=== PATIENT | female | born 1980 | race Caucasian/White ===

== ENCOUNTER 2017-08-01 14:10 | Emergency (ER) | payer OTHER ==
[~2017-08-01] VITALS: Ht 157.5 cm; Wt 65.5 kg
[2017-08-01 14:44] VITALS: BP 118/58; PULSE 66; RESP 16; TEMP 98.3; O2SAT 100
--- NOTE | 2017-08-01 15:20 | PD ---
HPI Chief Complaint: Headache Time Seen by Provider: 15:11 Travel History International Travel<30 days: No Contact w/Intl Traveler<30days: No Traveled to known affect area: No History of Present Illness HPI [age]-year-old female complains of headache as well as nausea. She reports a sense of numbness about the nose. She's had headaches for years about one month. Today's headache is similar to others however the numbness about the nose is no different. No loss of consciousness. Onset gradual. No vomiting. Range of motion of the neck is normal. PFSH Past Medical History Diminished Hearing: No Kidney Stones: Yes Tetanus Vaccination: Unknown ?: Not LMP: BCP Past Surgical History Surgical History: No Previous Surgery Social History Alcohol Use: Yes (RARE) Tobacco Use: Yes (OCC) Substance Use: No Allergies-Medications (Allergen,Severity, Reaction): Coded Allergies: No Known Allergies (Verified Allergy, Unknown, 08/01/17) Reported Meds & Prescriptions Reported Meds & Active Scripts Active Prochlorperazine Maleate 10 Mg Tab 10 Mg PO Q6H PRN Review of Systems Except as stated in HPI: all other systems reviewed are Neg General / Constitutional: No: Fever Physical Exam Narrative GENERAL: Well-nourished well-developed 36-year-old female no acute distress Vital Signs Date Time Temp Pulse Resp B/P (MAP) Pulse Ox O2 Delivery O2 Flow Rate FiO2 08/01/17 17:16 60 16 100 08/01/17 17:06 16 100 Room Air 08/01/17 15:10 16 100 Room Air 08/01/17 14:44 98.3 66 16 118/58 (78) 100 SKIN: Warm and dry. HEAD: Atraumatic. Normocephalic. EYES: Pupils equal and round. No scleral icterus. No injection or drainage. ENT: No nasal bleeding or discharge. Mucous membranes pink and moist. NECK: Trachea midline. No JVD. Supple no range of motion. CARDIOVASCULAR: Regular rate and rhythm. RESPIRATORY: No accessory muscle use. Clear to auscultation. Breath sounds equal bilaterally. GASTROINTESTINAL: Abdomen soft, non-tender, nondistended. Hepatic and splenic margins not palpable. MUSCULOSKELETAL: Extremities without clubbing, cyanosis, or edema. No obvious deformities. NEUROLOGICAL: Awake and alert. No obvious cranial nerve deficits. Motor grossly within normal limits. Five out of 5 muscle strength in the arms and legs. Normal speech. PSYCHIATRIC: Appropriate mood and affect; insight and judgment normal. Data Data Last Documented VS Vital Signs Date Time Temp Pulse Resp B/P (MAP) Pulse Ox O2 Delivery O2 Flow Rate FiO2 08/01/17 17:16 60 16 100 08/01/17 17:06 Room Air 08/01/17 14:44 98.3 118/58 (78) Orders Orders Urinalysis - C+S If Indicated (08/01/17 15:15) Ed Urine Pregnancytest Poc (08/01/17 15:15) Complete Blood Count With Diff (08/01/17 15:27) Basic Metabolic Panel (Bmp) (08/01/17 15:27) Ct Brain W/O Iv Contrast(Rout) (08/01/17 15:32) Ecg Monitoring (08/01/17 15:32) Iv Access Insert/Monitor (08/01/17 15:32) Oximetry (08/01/17 15:32) Sodium Chloride 0.9% Flush (Ns Flush) (08/01/17 15:45) Acetaminophen (Tylenol) (08/01/17 15:45) Diphenhydramine Inj (Benadryl Inj) (08/01/17 15:45) Metoclopramide Inj (Reglan Inj) (08/01/17 15:45) Sodium Chlor 0.9% 1000 Ml Inj (Ns 1000 M (08/01/17 15:32) Ed Discharge Order (08/01/17 16:27) Labs Laboratory Tests Test 08/01/17 15:20 08/01/17 15:30 Urine Color STRAW Urine Turbidity CLEAR Urine pH 6.5 Urine Specific Slater 1.020 Urine Protein NEG mg/dL Urine Glucose (UA) NEG mg/dL Urine Ketones NEG mg/dL Urine Occult Blood NEG Urine Nitrite NEG Urine Bilirubin NEG Urine Urobilinogen 0.2 MG/DL Urine Leukocyte Esterase NEG Urine RBC 0-3 /hpf Urine WBC 0-2 /hpf Urine Squamous Epithelial Cells 6-8 /hpf Microscopic Urinalysis Comment CULT NOT INDICATED White Blood Count 7.2 TH/MM3 Red Blood Count 4.83 MIL/MM3 Hemoglobin 14.5 GM/DL Hematocrit 43.6 % Mean Corpuscular Volume 90.4 FL Mean Corpuscular Hemoglobin 30.0 PG Mean Corpuscular Hemoglobin Concent 33.3 % Red Cell Distribution Width 12.3 % Platelet Count 231 TH/MM3 Mean Platelet Volume 9.1 FL Neutrophils (%) (Auto) 69.3 % Lymphocytes (%) (Auto) 21.2 % Monocytes (%) (Auto) 5.1 % Eosinophils (%) (Auto) 1.6 % Basophils (%) (Auto) 2.8 % Neutrophils # (Auto) 5.0 TH/MM3 Lymphocytes # (Auto) 1.5 TH/MM3 Monocytes # (Auto) 0.4 TH/MM3 Eosinophils # (Auto) 0.1 TH/MM3 Basophils # (Auto) 0.2 TH/MM3 CBC Comment DIFF FINAL Differential Comment Blood Urea Nitrogen 12 MG/DL Creatinine 0.62 MG/DL Random Glucose 64 MG/DL Calcium Level 9.0 MG/DL Sodium Level 137 MEQ/L Potassium Level 4.5 MEQ/L Chloride Level 105 MEQ/L Carbon Dioxide Level 27.9 MEQ/L Anion Gap 4 MEQ/L Estimat Glomerular Filtration Rate 110 ML/MIN MDM Medical Decision Making Medical Screen Exam Complete: Yes Emergency Medical Condition: Yes Medical Record Reviewed: Yes Differential Diagnosis Migraine, intracranial hemorrhage, TIA Narrative Course CBC & BMP Diagram 08/01/17 15:30 Calcium Level 9.[address] 08/01/17 1532 Signed Impressions: Service Date/Time: Tuesday, August 01, 2017 15:47 - CONCLUSION: Negative noncontrast head CT. No abnormality is identified to explain the clinical symptoms. Gilberto Morrell MD The patient is resting comfortably and feels better, is alert and in no distress. The patients results and examination findings were discussed. The repeat examination is unremarkable and benign. The history, exam, diagnostic testing, and current condition do not suggest any significant pathology to warrant further testing, continued ED treatment, admission, or surgical evaluation at this point. The vital signs have been stable. The patient does not have uncontrollable pain, intractable vomiting, or other significant symptoms. The patient's condition is stable and appropriate for discharge. The patient will pursue further outpatient evaluation with a primary care physician or other designated or consulting physician as indicated in the discharge instructions. The patient expressed understanding and was agreeable with this plan. Diagnosis Primary Impression: Headache Qualified Codes: R51 - Headache Additional Impression: Paresthesia Referrals: Jensen Barnett MD call for appointment Casey Cordoba MD call for appointment Med/Other Pt SpecificInfo: Prescription(s) given Scripts Prochlorperazine Maleate (Prochlorperazine Maleate) 10 Mg Tab 10 MG PO Q6H Y for HEADACHE, #15 TAB 0 Refills Prov: Haile Garcia MD 08/01/17 Disposition: 01 DISCHARGE HOME Condition: Stable Haile Garcia MD Aug 01, 2017 15:20
[2017-08-01] MEDS ORDERED: SODIUM CHLOR 0.9% 1000 ML INJ 1,000 ML IV ONE (15:32)
[2017-08-01 15:34] LABS: BILIRUBIN, URINE NEG (NEG); BLOOD, URINE NEG (NEG); GLUCOSE,URINE NEG (NEG); KETONE, URINE NEG (NEG); NITRITE,URINE NEG (NEG); PH, URINE 6.5 (5.0-8.5); URINE LEUKOCYTE ESTERASE NEG (NEG)
[2017-08-01] MEDS ORDERED: diphenhydrAMINE HCL 50 MG/ML VIAL IVP ONE (15:45)
[2017-08-01] MEDS ORDERED: ACETAMINOPHEN 325 MG TAB PO ONE (15:45)
[2017-08-01] MEDS ORDERED: SODIUM CHLORIDE 0.9% FLUSH 10 ML FLUSH IVF PRN (15:45)
[2017-08-01] MEDS ORDERED: METOCLOPRAMIDE HCL 10 MG/2 ML VIAL IVP ONE (15:45)
[2017-08-01 15:49] LABS: URINE COLOR STRAW (YELLW/STRAW)
[2017-08-01 15:50] LABS: RBC, URINE 0-3 /hpf (0-3); WBC, URINE 0-2 /hpf (0-5)
[2017-08-01 15:59] LABS: BASOPHIL # 0.2 TH/MM3 (0-0.2); BASOPHIL % 2.8 % (0.0-2.0); EOSINOPHIL # 0.1 TH/MM3 (0-0.4); EOSINOPHIL % 1.6 % (0.0-4.0); HEMATOCRIT 43.6 % (35.0-46.0); HEMOGLOBIN 14.5 GM/DL (11.6-15.3); LYMPH % 21.2 % (9.0-44.0); LYMPHOCYTE # 1.5 TH/MM3 (1.0-4.8); MEAN CELL VOLUME 90.4 FL (80.0-100.0); MEAN CORPUSCULAR HGB CONC 33.3 % (32.0-36.0); MEAN PLATELET VOLUME 9.1 FL (7.0-11.0); MONO % 5.1 % (0.0-8.0); MONOCYTE # 0.4 TH/MM3 (0-0.9); NEUT % 69.3 % (16.0-70.0); PLATELET COUNT 231 TH/MM3 (150-450); RED BLOOD COUNT 4.83 MIL/MM3 (4.00-5.30); RED CELL DISTRIBUTION WIDTH 12.3 % (11.6-17.2); WHITE BLOOD COUNT 7.2 TH/MM3 (4.0-11.0)
--- NOTE | 2017-08-01 16:10 | RADRPT ---
EXAM DATE/TIME: 08/01/2017 15:47 [facility] COMPARISON: No previous studies available for comparison. INDICATIONS : Headache with visual disturbance. RADIATION DOSE: 51.28 CTDIvol (mGy) MEDICAL HISTORY : Renal calculi. SURGICAL HISTORY : None. ENCOUNTER: Initial ACUITY: 2 days PAIN SCALE: 5/10 LOCATION: cranial TECHNIQUE: Multiple contiguous axial images were obtained of the head. Using automated exposure control and adj ustment of the mA and/or kV according to patient size, radiation dose was kept as low as reasonably a chievable to obtain optimal diagnostic quality images. DICOM format image data is available electro nically for review and comparison. FINDINGS: CEREBRUM: The ventricles are normal. No evidence of midline shift, mass lesion, hemorrhage or acute infarction . No extra-axial fluid collections are seen. POSTERIOR FOSSA: The cerebellum and brainstem are intact. The 4th ventricle is midline. The cerebellopontine angle i s unremarkable. EXTRACRANIAL: The visualized sinuses are clear. SKULL: The calvaria is intact. No evidence of skull fracture. CONCLUSION: Negative noncontrast head CT. No abnormality is identified to explain the clinical symptoms. Gilberto Morrell MD on August 01, 2017 at 16:05 Board Certified Radiologist. This report was verified electronically.
[2017-08-01 16:13] LABS: BICARBONATE 27.9 MEQ/L (21.0-32.0)
[2017-08-01 16:17] LABS: CREATININE 0.62 MG/DL (0.50-1.00)
[2017-08-01] MEDS ORDERED: PROC10TA PO (16:28)
[2017-08-01 17:06] VITALS: RESP 16; O2SAT 100
== END 2017-08-01 17:20 | disposition home or self-care (01) ==
LOC: PHED 14:10
DX: R51 Headache (principal); R11.0 Nausea; R20.2 Paresthesia of skin; Z87.442 Personal history of urinary calculi; Z72.0 Tobacco use
CPT/HCPCS: 70450; 80048; 81001; 84703; 85025; 96361; 96374; 96375; 99284; J1200; J2765; J7030